=== PATIENT | male | born 1960 | race Caucasian/White ===

== ENCOUNTER 2019-04-27 10:34 | Emergency (ER) | payer OTHER, SELFPAY ==
[2019-04-27 10:41] VITALS: BP 132/87; PULSE 69; RESP 18; TEMP 36.4; O2SAT 98
--- NOTE | 2019-04-27 10:48 | ED.GENADULT ---
HPI - General Adult General Chief complaint: Upper Respiratory Infection Stated complaint: congestion/cough Time Seen by Provider: 04/27/19 10:49 Source: patient and RN notes reviewed Mode of arrival: ambulatory Limitations: no limitations History of Present Illness HPI narrative: This is a 58 years old male presented office for evaluation of head cold for 1 to 2-week. Symptom has gotten worse for the last week with headache, drainage, sore throat, head fullness, and cough. Cough is very bothersome at nighttime. His was sick first which has passed onto him. He did receive influenza vaccine for this season. Related Data Home Medications Medication Instructions Recorded Confirmed montelukast 10 mg tablet 10 mg PO DAILY 01/05/19 04/27/19 Allergies Allergy/AdvReac Type Severity Reaction Status Date / Time No Known Allergies Allergy Verified 04/27/19 10:44 Review of Systems Review of Systems: Narrative: CONSTITUTIONAL: Denies fever ENT: Reports rhinorrhea, congestion, sore throat, otalgia. CARDIOVASCULAR: Denies chest pain, palpitation, edema. RESPIRATORY: Denies dyspnea, wheezing GASTROINTESTINAL: Denies abdominal pain, nausea, vomiting, diarrhea. SKIN: Denies rash MUSCULOSKELETAL: Denies acute back pain NEUROLOGIC: Denies lightheaded PMFSH Past Medical History Medical History Allergic rhinitis, unspecified Arthritis Asthma Avascular necrosis of bone of left hip Borderline hyperlipidemia Elevated glucose Enlarged prostate with lower urinary tract symptoms (LUTS) Essential (primary) hypertension Fatty liver disease, nonalcoholic (09/22/18) History of inguinal hernia History of kidney stones Hypertension Other obstructive and reflux uropathy (09/22/18) Polyosteoarthritis, unspecified (09/22/18) Primary osteoarthritis of left hip Surgical History Surgical History History of inguinal hernia repair History of nasal septoplasty History of total left hip arthroplasty (~03/09/18) Presence of left artificial hip joint (03/09/18) Family History Family History Father Hypertension Family history of diabetes mellitus in first degree relative Family history of lung cancer, Onset Age: 74 Diabetes mellitus Family history of malignant neoplasm Family history of allergic disorder Mother Hypertension Family history of allergic disorder Sibling Patient's brother is in good health Other Asthma Social History Social History Smoking status: Never smoker Alcohol intake: current Gender identity (if verbalized by the patient): Male Comments At time of signature, I agree with nursing past medical, surgical, social and family history. There is no relevant family history pertinent to the presenting complaint. Exam Narrative: Exam Narrative: GENERAL: This is a well-nourished, well-developed patient, in no apparent distress. EYES: Sclera clear/white. Vision is grossly intact. EARS: External ears normal, auditory canals clear and without drainage, TMs normal without perforation. Hearing grossly intact. NOSE: External nose normal with no obvious nasal discharge, nares without redness, no rhinorrhea. THROAT: Mucous membranes moist, posterior pharynx erythema and edematous NECK: Neck supple, non-tender without lymphadenopathy, masses or thyromegaly. CARDIOVASCULAR: Regular rate and rhythm without murmurs, gallops, or rubs. RESPIRATORY: Clear to auscultation. Breath sounds equal bilaterally. No wheezes, rales, or rhonchi. GASTROINTESTINAL: Abdomen soft, non-tender, nondistended. Bowel sounds are active.No guarding. SKIN: warm, intact with no suspicious lesions or rash, good texture and turgor. NEURO: awake, alert, and oriented to person, place and time. There were no obvious focal kristyn
== END 2019-04-27 11:00 | disposition home or self-care (01) ==
PROVIDERS: Emergency Provider Nurse Practitioner; PCP Internal Medicine
DX: J06.9 Acute upper respiratory infection, unspecified (principal); M19.90 Unspecified osteoarthritis, unspecified site; J45.909 Unspecified asthma, uncomplicated; I10 Essential (primary) hypertension; Z96.642 Presence of left artificial hip joint; N40.1 Benign prostatic hyperplasia with lower urinary tract symptoms
CPT/HCPCS: 99213; G0463

== ENCOUNTER 2020-02-25 10:05 | Emergency (ER) | payer OTHER, SELFPAY ==
--- NOTE | ~2020-02-25 | XR_ITS ---
EXAMINATION: XR foot RT min 3V DATE: 02/25/2020 10:41 INDICATION: Pain and swelling at the calcaneus post fall TECHNIQUE: Dorsoplantar, two oblique and lateral views of the right foot were obtained. COMPARISON: None. FINDINGS: Comminuted joint depression type fracture of the calcaneus with flattening of Boehler's angle. There are fracture lines involving the articular surfaces of both the subtalar joint and calcaneocuboid luis antonio nt, the former with 2 mm step-off in the latter without significant fracture gap or incongruity. No o ther fractures identified. Otherwise normal alignment and joint spaces throughout the right foot. Sof t tissue swelling about the hindfoot. No ankle joint effusion. IMPRESSION: 1. Comminuted joint depression type fracture of the calcaneus involving both the subtalar and calcane ocuboid joints. Reviewed, dictated and finalized at location A. 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 Comminuted joint depression type fracture of the calcaneus involving both th e subtalar and calcaneocuboid joints.
[2020-02-25 10:24] VITALS: BP 156/102; PULSE 78; RESP 18; TEMP 36.3; O2SAT 99
--- NOTE | 2020-02-25 11:50 | ED.FALL ---
HPI - Fall General Chief Complaint: Fall Stated Complaint: R FOOT PAIN/FELL OFF 8 FT ROOF Time Seen by Provider: 02/25/20 10:35 Source: patient and family () Mode of arrival: other (Ambulatory with crutches) Limitations: no limitations History of Present Illness HPI Narrative: Patient is a 59-year-old male who presents after a fall off of a roof this a.m. Patient reports taking Ramone lights off of a gently sloping roof when he slid falling to a concrete patio on right heel. He denies back pain, neck pain, hitting head or LOC. He reports pain in her right foot and heel. He denies all other injuries. and patient refuse all x-rays except that of foot and ankle. He reports taking 800 mg of ibuprofen prior to arrival. Ambulatory with crutches, alert and oriented x4, denies significant medical history. MD complaint: fall Related Data Allergies Allergy/AdvReac Type Severity Reaction Status Date / Time No Known Allergies Allergy Verified 02/25/20 10:27 Review of Systems Review of Systems: Narrative: CONSTITUTIONAL: Denies fever, chills, or sweats. EYES: Denies visual changes, redness, or discharge. ENT: Denies rhinorrhea, congestion, sore throat, or otalgia. CARDIOVASCULAR: Denies chest pain, palpitations, or edema. RESPIRATORY: Denies cough or dyspnea. GASTROINTESTINAL: Denies abdominal pain, nausea, vomiting, or diarrhea. GENITOURINARY: Denies dysuria or hematuria. SKIN: Denies rash or itching. MUSCULOSKELETAL: Denies back pain or neck pain, reports right foot pain NEUROLOGIC: Denies headache, numbness, dizziness, or weakness. PSYCHIATRIC: Denies anxiety or depression. [facility] Past Medical History Medical History Allergic rhinitis, unspecified Arthritis Asthma Avascular necrosis of bone of left hip Borderline hyperlipidemia Elevated glucose Enlarged prostate with lower urinary tract symptoms (LUTS) Essential (primary) hypertension Fatty liver disease, nonalcoholic (09/22/18) History of inguinal hernia History of kidney stones Hypertension Other obstructive and reflux uropathy (09/22/18) Polyosteoarthritis, unspecified (09/22/18) Primary osteoarthritis of left hip Surgical History Surgical History History of inguinal hernia repair History of nasal septoplasty History of total left hip arthroplasty (~03/09/18) Presence of left artificial hip joint (03/09/18) Family History Family History Father Hypertension Family history of diabetes mellitus in first degree relative Family history of lung cancer, Onset Age: 74 Diabetes mellitus Family history of malignant neoplasm Family history of allergic disorder Mother Hypertension Family history of allergic disorder Sibling Patient's brother is in good health Other Asthma Social History Social History Smoking status: Never smoker Alcohol intake: current Gender identity (if verbalized by the patient): Male Exam Narrative: Exam Narrative: GENERAL: Well-appearing, well-nourished, and in no acute distress. HEAD: Normocephalic, atraumatic. EYES: EOMI. No redness or drainage. ENT: Mucous membranes pink and moist. NECK: AROM. Supple. No lymphadenopathy, no pain with palpation. CHEST: No respiratory distress. Clear to auscultation. HEART: Regular rate and rhythm. GI: Soft, nontender without rebound, or guarding. No distention. MUSCULOSKELETAL: No bony tenderness. EXTREMITIES: Edema to right ankle, ecchymosis right calcaneus, tenderness with palpation SKIN: Warm, dry, no rash. NEURO: No focal deficits. Alert and oriented x3. Gait steady. PSYCH: Normal affect. No signs of depression or anxiety. Course Course Emergency Course: Discussed patient with Dr. Andujar who feels patient needs transfer [facility]. Carole
[2020-02-25 11:52] VITALS: BP 143/86; PULSE 75; RESP 18; O2SAT 96
== END 2020-02-25 12:36 | disposition short-term general hospital (02) ==
PROVIDERS: Emergency Provider Nurse Practitioner; PCP Internal Medicine
DX: S92.001A Unspecified fracture of right calcaneus, initial encounter for closed fracture (principal); J45.909 Unspecified asthma, uncomplicated; I10 Essential (primary) hypertension; M16.12 Unilateral primary osteoarthritis, left hip; Z87.442 Personal history of urinary calculi; N40.1 Benign prostatic hyperplasia with lower urinary tract symptoms; Z96.642 Presence of left artificial hip joint; W13.2XXA Fall from, out of or through roof, initial encounter
CPT/HCPCS: 29515; 73630; 99284

== ENCOUNTER 2020-06-20 07:30 | Outpatient (CLI) | payer OTHER, SELFPAY ==
[2020-06-20 08:09] LABS: Alanine Aminotransferase 49 U/L (4-50); Albumin Level 4.2 g/dL (3.5-5.1); Alkaline Phosphatase 54 U/L (38-126); Anion Gap 5 mmol/L (8-16); Aspartate Amino Transferase 43 U/L (17-59); Bilirubin,Total 0.6 mg/dL (0.2-1.3); Blood Urea Nitrogen 14 mg/dL (9-20); Calcium 8.4 mg/dL (8.4-10.2); Carbon Dioxide 31 mmol/L (22-30); Chloride 101 mmol/L (98-107); Cholesterol 143 mg/dL (0-200); Estimated Glomerular Filt Rate > 60; Glucose 123 mg/dL (75-110); HDL Direct 36 mg/dL; Sodium 137 mmol/L (137-145); Triglycerides 107 mg/dL (<150)
[2020-06-20 08:20] LABS: LDL Cholesterol Direct 87 mg/dL
[2020-06-20 10:05] LABS: Prostate Specific Antigen 6.1 ng/mL (< OR = 4.0)
== END 2020-06-20 07:31 | disposition home or self-care (01) ==
PROVIDERS: PCP Internal Medicine; Visit Provider Nurse Practitioner
DX: Z12.5 Encounter for screening for malignant neoplasm of prostate (principal); I10 Essential (primary) hypertension; R74.8 Abnormal levels of other serum enzymes; Z13.220 Encounter for screening for lipoid disorders
CPT/HCPCS: 36415; 80053; 80061; 84153; G0103

== ENCOUNTER 2020-06-21 08:47 | Outpatient (CLI) | payer OTHER, SELFPAY ==
--- NOTE | ~2020-06-21 | XR_ITS ---
XR abdomen/kub 1V 06/21/2020 09:21 Indication: Gross hematuria Procedure: KUB Comparison: 04/01/2013 Findings: There is a calcification in the right pelvis which is new. Bladder or distal ureteral stone not excluded. There is a left total hip arthroplasty. No acute osseous abnormality. Mild levocurvatu re of the lumbar spine. Impression: 1: Focal calcification in the right pelvis is new, possibly distal ureteral stone or bladder stone. Reviewed, dictated and finalized at location B. Impression: 1: Focal calcification in the right pelvis is new, possibly distal ureteral sto ne or bladder stone.
--- NOTE | ~2020-06-21 | CT_ITS ---
EXAMINATION: CT abdomen pelvis wo/w con DATE: 06/21/2020 09:44 INDICATION: Gross hematuria. TECHNIQUE: Computed tomography (CT) of the abdomen and pelvis was performed without and with intraven ous contrast using a total of 130 mL Omnipaque-350 intravenous contrast with a double-bolus technique for simultaneous opacification of the renal parenchyma and renal collecting system. Automated exposu re control and iterative reconstruction technique were employed. The dose-length product was 2182.98 mGy-cm. COMPARISON: CT abdomen and pelvis 03/15/2013 FINDINGS: The visualized portions of the lung bases demonstrate mild atelectasis. No pleural effusion. The hear t size is normal. No pericardial effusion. There is a small sliding hiatal hernia. There is diffuse h epatic steatosis. There are cysts in the liver measuring up to 9 mm. The spleen, pancreas, and adrena l glands are normal. There are cysts in the kidneys measuring up to 15 mm on the left. There is a 5 m m stone in the bladder. There is diffuse bladder wall thickening. The bladder is distended. The prost ate is moderately enlarged. The ureters are well opacified and are normal. There is a left inguinal h ernia containing fat and nonobstructed sigmoid colon. There are no dilated loops of bowel. The append ix is normal. There are no pathologically enlarged lymph nodes. There is no free intraperitoneal flu id. There is a total left hip arthroplasty. There are chronic bilateral L5 pars defects. There is sev ere degenerative disc disease at L5-S1. IMPRESSION: 1. 5 mm stone in the bladder. 2. Chronic diffuse mild bladder wall thickening, likely secondary to chronic outlet obstruction from the moderately enlarged prostate. 3. Left inguinal hernia containing nonobstructed sigmoid colon. Reviewed, dictated and finalized at location A. IMPRESSION: 1. 5 mm stone in the bladder. 2. Chronic diffuse mild bladder wall thickening, likely secondary to chronic ou tlet obstruction from the moderately enlarged prostate. 3. Left inguinal hernia containing nonobstructed sigmoid colon.
== END 2020-06-21 08:48 | disposition home or self-care (01) ==
PROVIDERS: PCP Internal Medicine; Visit Provider Nurse Practitioner Adult Health
DX: R31.0 Gross hematuria (principal); K40.90 Unilateral inguinal hernia, without obstruction or gangrene, not specified as recurrent; N21.0 Calculus in bladder
CPT/HCPCS: 74018; 74178; Q9967

== ENCOUNTER 2020-08-09 13:25 | Emergency (ER) | payer OTHER, SELFPAY ==
[2020-08-09 13:35] VITALS: BP 112/97; PULSE 82; RESP 18; TEMP 36.6; O2SAT 97
--- NOTE | 2020-08-09 14:02 | ED.GENADULT ---
HPI - General Adult General Chief complaint: Skin/Abscess/Foreign Body Stated complaint: rash Time Seen by Provider: 08/09/20 13:30 Source: patient Mode of arrival: ambulatory Limitations: no limitations History of Present Illness HPI narrative: 60 y/o male. PMH includes: Seasonal allergies, HTN. Presents to [facility] today with acute complaints of upper buttock excoriation and rash for past 4 days. 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 Client notes to have been scratching area because it was itching, and now area has become more inflamed and irritated. No fevers, myalgias. No additional areas of integumentary involvement. Non-diabetic. He is without additional acute complaints of illness upon exam. Related Data Home Medications Medication Instructions Recorded Confirmed finasteride 5 mg PO DAILY 08/09/20 08/09/20 Allergies Allergy/AdvReac Type Severity Reaction Status Date / Time No Known Allergies Allergy Verified 08/09/20 13:41 Review of Systems Review of Systems: Narrative: CONSTITUTIONAL: Denies fever, chills, sweats. EYES: Denies visual changes, redness, discharge. ENT: Denies rhinorrhea, congestion, sore throat, otalgia. CARDIOVASCULAR: Denies chest pain, palpitations, edema. RESPIRATORY: Denies dyspnea, wheezing, cough GASTROINTESTINAL: Denies abdominal pain, nausea, vomiting, diarrhea. GENITOURINARY: Denies dysuria, hematuria, abnormal discharge SKIN: Positive rash & itching. MUSCULOSKELETAL: Denies acute back pain, joint pain, or myalgia. NEUROLOGIC: Denies numbness, or focal weakness. PSYCHIATRIC: Denies anxiety or depression. All systems reviewed & are unremarkable except as noted in HPI and below PMFSH Past Medical History Medical History Allergic rhinitis, unspecified Arthritis Asthma Avascular necrosis of bone of left hip Borderline hyperlipidemia Elevated glucose Enlarged prostate with lower urinary tract symptoms (LUTS) Essential (primary) hypertension Fatty liver disease, nonalcoholic (09/22/18) History of inguinal hernia History of kidney stones Hypertension Other obstructive and reflux uropathy (09/22/18) Polyosteoarthritis, unspecified (09/22/18) Primary osteoarthritis of left hip Surgical History Surgical History History of inguinal hernia repair History of nasal septoplasty History of total left hip arthroplasty (~03/09/18) Presence of left artificial hip joint (03/09/18) Family History Family History Father Hypertension Family history of diabetes mellitus in first degree relative Family history of lung cancer, Onset Age: 74 Diabetes mellitus Family history of malignant neoplasm Family history of allergic disorder Mother Hypertension Family history of allergic disorder Sibling Patient's brother is in good health Other Asthma Social History Social History Smoking status: Never smoker Alcohol intake: current Gender identity (if verbalized by the patient): Male Exam Narrative: Exam Narrative: GENERAL: This is a well-nourished, well-developed patient, in no apparent distress. HEAD: normocephalic, atraumatic. EYES: Sclera clear/white. EARS: External ears normal. NOSE: External nose normal. THROAT: Mucous membranes moist. NECK: Neck supple, non-tender without lymphadenopathy, masses or thyromegaly. CARDIOVASCULAR: Regular rate and rhythm without murmurs, gallops, or rubs. RESPIRATORY: Clear to auscultation. Breath sounds equal bilaterally. GASTROINTESTINAL: Abdomen soft, non-tender, nondistended. SKIN: with erythema and soft tissue excoriation along both sides of the upper aspect of gluteal cleft. There are superficial scratches, no deep tissue disruption.
== END 2020-08-09 14:25 | disposition home or self-care (01) ==
PROVIDERS: Emergency Provider Nurse Practitioner Adult Health; PCP Internal Medicine
DX: R21 Rash and other nonspecific skin eruption (principal); S30.810A Abrasion of lower back and pelvis, initial encounter; X58.XXXA Exposure to other specified factors, initial encounter; M19.90 Unspecified osteoarthritis, unspecified site; J45.909 Unspecified asthma, uncomplicated; I10 Essential (primary) hypertension; K76.0 Fatty (change of) liver, not elsewhere classified; M87.9 Osteonecrosis, unspecified
CPT/HCPCS: 99213; G0463

== ENCOUNTER 2020-10-31 09:34 | Outpatient (CLI) | payer OTHER, SELFPAY ==
[2020-10-31 10:38] LABS: Alanine Aminotransferase 91 U/L (4-50); Albumin Level 4.5 g/dL (3.5-5.1); Alkaline Phosphatase 44 U/L (38-126); Anion Gap 7 mmol/L (8-16); Aspartate Amino Transferase 67 U/L (17-59); Bilirubin,Total 0.7 mg/dL (0.2-1.3); Blood Urea Nitrogen 13 mg/dL (9-20); Calcium 8.9 mg/dL (8.4-10.2); Carbon Dioxide 28 mmol/L (22-30); Chloride 101 mmol/L (98-107); Cholesterol 150 mg/dL (0-200); Estimated Glomerular Filt Rate > 60; Glucose 119 mg/dL (65-110); HDL Direct 33 mg/dL; Potassium 4.1 mmol/L (3.4-5.0); Sodium 136 mmol/L (137-145); Triglycerides 154 mg/dL (<150)
[2020-10-31 10:49] LABS: LDL Cholesterol Direct 79 mg/dL
[2020-10-31 11:09] LABS: Prostate Specific Antigen 3.3 ng/mL (< OR = 4.0)
== END 2020-10-31 09:35 | disposition home or self-care (01) ==
LOC: ANHLAB 09:37
PROVIDERS: PCP Internal Medicine; Visit Provider Internal Medicine
DX: Z12.5 Encounter for screening for malignant neoplasm of prostate (principal); Z13.220 Encounter for screening for lipoid disorders; R79.89 Other specified abnormal findings of blood chemistry; I10 Essential (primary) hypertension
CPT/HCPCS: 36415; 80053; 80061; 84153; G0103

== ENCOUNTER 2023-02-04 07:54 | Outpatient (CLI) | payer OTHER, SELFPAY ==
[2023-02-04 08:40] LABS: Hematocrit 48.8 % (42.0-52.0); Hemoglobin 16.6 g/dL (14.0-18.0); Mean Corpuscular Hemoglobin 31.9 pg (26-34); Mean Corpuscular Volume 93.8 fl (80-100); Mean Platelet Volume 9.8 fl (7.4-10.4); Platelet Count Result 193 k/mm3 (150-375); Red Cell Distribution Width 12.5 % (11.5-14.5); White Blood Count 6.1 K/mm3 (4.5-10.0)
[2023-02-04 08:47] LABS: Alanine Aminotransferase 83 U/L (6-50); Albumin Level 4.4 g/dL (3.5-5.1); Alkaline Phosphatase 48 U/L (38-126); Anion Gap 5 mmol/L (8-16); Aspartate Amino Transferase 57 U/L (17-59); Bilirubin,Total 0.6 mg/dL (0.2-1.3); Blood Urea Nitrogen 17 mg/dL (9-20); Calcium 8.8 mg/dL (8.4-10.2); Carbon Dioxide 31 mmol/L (22-30); Chloride 100 mmol/L (98-107); Cholesterol 172 mg/dL (0-200); Estimated Glomerular Filt Rate > 60; Glucose 123 mg/dL (65-110); HDL Direct 30 mg/dL; Potassium 4.1 mmol/L (3.4-5.0); Sodium 136 mmol/L (137-145); Triglycerides 310 mg/dL (<150)
[2023-02-04 08:56] LABS: LDL Cholesterol Direct 93 mg/dL
[2023-02-04 08:57] LABS: Hemoglobin A1C 6.1 % (<5.7)
[2023-02-04 09:15] LABS: Prostate Specific Antigen 2.5 ng/mL (< OR = 4.0)
== END 2023-02-04 07:55 | disposition home or self-care (01) ==
LOC: ANHLAB 07:56
PROVIDERS: PCP Family Medicine; Visit Provider Family Medicine
DX: J45.909 Unspecified asthma, uncomplicated (principal); Z68.30 Body mass index [BMI] 30.0-30.9, adult; I10 Essential (primary) hypertension; R74.8 Abnormal levels of other serum enzymes; R73.01 Impaired fasting glucose; Z00.00 Encounter for general adult medical examination without abnormal findings; Z13.220 Encounter for screening for lipoid disorders; Z12.5 Encounter for screening for malignant neoplasm of prostate
CPT/HCPCS: 36415; 80053; 80061; 83036; 84153; 85027; G0103

== ENCOUNTER 2023-07-08 13:22 | Emergency (ER) | payer OTHER, SELFPAY ==
--- NOTE | 2023-07-08 13:25 | ED.GENADULT ---
HPI - General Adult General Chief complaint: Skin/Abscess/Foreign Body Stated complaint: skin irritation on rt forearm Time Seen by Provider: 07/08/23 13:38 Source: patient, RN notes reviewed and old records reviewed Mode of arrival: ambulatory Limitations: no limitations History of Present Illness HPI narrative: 62-year-old male presents to the [facility] with a wound to the mid right forearm. States about a week ago he removed a splinter from the area. Has been applying Neosporin keeping it covered. Related Data Home Medications Medication Instructions Recorded Confirmed finasteride 5 mg tablet 5 mg PO DAILY 08/09/20 07/08/23 Allergies Allergy/AdvReac Type Severity Reaction Status Date / Time No Known Allergies Allergy Verified 07/08/23 13:39 Review of Systems Review of Systems: All systems reviewed & are unremarkable except as noted in HPI and below Constitutional: Constitutional: Reports no additional constitutional complaints Eyes: Eyes: Reports no additional eye complaints ENT: Reports system reviewed and no additional complaints, except as documented Cardiovascular: Cardiovascular: Reports no additional cardiovascular complaints, Denies chest pain and Denies dyspnea Respiratory: Respiratory: Reports no additional respiratory complaints, Denies chest congestion, Denies cough and Denies dyspnea Gastrointestinal: Gastrointestinal: Reports no additional gastrointestinal complaints, Denies abdominal pain, Denies nausea and Denies vomiting Musculoskeletal: Musculoskeletal: Reports no additional musculoskeletal complaints Integumentary/Breasts: Skin/Breast: Reports as per HPI and Reports sores Neurologic: Reports system reviewed and no additional complaints, except as documented Psychiatric: Psychiatric: Reports no additional psychiatric complaints Allergic/Immunologic: Allergic/Immunologic: Reports no additional allergic/immunologic complaints [facility] Past Medical History Medical History Allergic rhinitis, unspecified Arthritis Asthma Avascular necrosis of bone of left hip Borderline hyperlipidemia Elevated glucose Enlarged prostate with lower urinary tract symptoms (LUTS) Essential (primary) hypertension Fatty liver disease, nonalcoholic (09/22/18) History of inguinal hernia History of kidney stones Hypertension Other obstructive and reflux uropathy (09/22/18) Polyosteoarthritis, unspecified (09/22/18) Primary osteoarthritis of left hip Surgical History Surgical History History of inguinal hernia repair History of nasal septoplasty History of total left hip arthroplasty (~03/09/18) Presence of left artificial hip joint (03/09/18) Family History Family History Father Hypertension Family history of diabetes mellitus in first degree relative Family history of lung cancer, Onset Age: 74 Diabetes mellitus Family history of malignant neoplasm Family history of allergic disorder Mother Hypertension Family history of allergic disorder Sibling Patient's brother is in good health Other Asthma Social History Social History Smoking status: Never smoker Second hand tobacco smoke exposure: No Alcohol intake: current Alcohol use details: socially Substance use: never Substance use type: does not use Lack of Transportation: No Lack of Food: Never True Current Housing: I Have Housing Concerned About Future Housing: No Difficulty Paying Gas/Electric Bills: No Difficulty Paying for Meds: No Currently Unemployed: No Education: Trade/Vocational Certificate Difficulty w/ Childcare or Family Care: No Gender identity (if verbalized by the patient): Male Comments At the time of my signature, I reviewed and agree with the nursing past medical, centeno
[2023-07-08 13:39] VITALS: BP 131/88; PULSE 72; RESP 18; TEMP 36.4; O2SAT 98
[2023-07-08 13:40] VITALS: BP 131/88; PULSE 72; RESP 18; TEMP 36.4; O2SAT 98
== END 2023-07-08 13:56 | disposition home or self-care (01) ==
PROVIDERS: Emergency Provider Nurse Practitioner; PCP Family Medicine
DX: S50.811A Abrasion of right forearm, initial encounter (principal); X58.XXXA Exposure to other specified factors, initial encounter; M19.90 Unspecified osteoarthritis, unspecified site; J45.909 Unspecified asthma, uncomplicated; M87.9 Osteonecrosis, unspecified; N40.1 Benign prostatic hyperplasia with lower urinary tract symptoms; I10 Essential (primary) hypertension; K76.0 Fatty (change of) liver, not elsewhere classified; M16.12 Unilateral primary osteoarthritis, left hip; Z96.642 Presence of left artificial hip joint
CPT/HCPCS: 99211; G0463

== ENCOUNTER 2023-08-19 06:30 | Outpatient (CLI) | payer OTHER, SELFPAY ==
[2023-08-19 07:42] LABS: Hematocrit 45.9 % (42.0-52.0); Hemoglobin 15.7 g/dL (14.0-18.0); Mean Corpuscular HGB Conc 34.2 g/dl (32-36); Mean Corpuscular Hemoglobin 32.2 pg (26-34); Mean Corpuscular Volume 94.1 fl (80-100); Mean Platelet Volume 9.4 fl (7.4-10.4); Platelet Count Result 189 k/mm3 (150-375); Red Blood Count 4.88 M/mm3 (4.6-6.20); Red Cell Distribution Width 13.1 % (11.5-14.5); White Blood Count 4.9 K/mm3 (4.5-10.0)
[2023-08-19 07:53] LABS: Alanine Aminotransferase 78 U/L (6-50); Albumin Level 4.3 g/dL (3.5-5.1); Alkaline Phosphatase 48 U/L (38-126); Anion Gap 7 mmol/L (4-12); Aspartate Amino Transferase 59 U/L (17-59); Bilirubin,Total 0.6 mg/dL (0.2-1.3); Blood Urea Nitrogen 13 mg/dL (9-20); Calcium 8.4 mg/dL (8.4-10.2); Carbon Dioxide 28 mmol/L (22-30); Chloride 104 mmol/L (98-107); Cholesterol 140 mg/dL (0-200); Estimated Glomerular Filt Rate > 60; Glucose 129 mg/dL (65-110); HDL Direct 31 mg/dL; Potassium 3.8 mmol/L (3.4-5.0); Sodium 139 mmol/L (137-145); Triglycerides 228 mg/dL (<150)
[2023-08-19 08:04] LABS: LDL Cholesterol Direct 87 mg/dL
[2023-08-19 08:33] LABS: Hepatitis B Surface Antigen Negative (Negative)
[2023-08-19 08:40] LABS: HAV RESULT Negative (Negative); Hepatitis B Core IgM Result Negative (Negative)
[2023-08-19 08:47] LABS: Hemoglobin A1C 5.6 % (<5.7)
[2023-08-19 08:50] LABS: Hepatitis C Virus Antibody Negative (Negative)
== END 2023-08-19 06:31 | disposition home or self-care (01) ==
LOC: ANHLAB 06:32
PROVIDERS: PCP Family Medicine; Visit Provider Family Medicine
DX: E78.1 Pure hyperglyceridemia (principal); I10 Essential (primary) hypertension; J45.909 Unspecified asthma, uncomplicated; R73.03 Prediabetes; R74.8 Abnormal levels of other serum enzymes; Z00.00 Encounter for general adult medical examination without abnormal findings
CPT/HCPCS: 36415; 80053; 80061; 80074; 83036; 85027

== ENCOUNTER 2023-09-04 14:21 | Outpatient (CLI) | payer OTHER, SELFPAY | END 2023-09-04 14:22 | disposition home or self-care (01) | LOC: ANHAUDIO 14:21 | PROVIDERS: PCP Family Medicine; Visit Provider Otolaryngology | DX: H90.3 Sensorineural hearing loss, bilateral (principal); J31.0 Chronic rhinitis; H61.22 Impacted cerumen, left ear | CPT/HCPCS: 92557; 92567 ==

== ENCOUNTER 2024-04-05 09:13 | Outpatient (CLI) | payer OTHER, SELFPAY ==
--- OUTSIDE RECORDS SUMMARY | 2024-04-05 10:11 | XMS_ITS | Referral Summary ---
Author Organization [facility] Address [address] 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,non-owned Affiliates and Associated Physician Practices is amultiple site organization consisting of ambulatory clinics and hospital sitesin [place], [place], [place] and [place]. This disclosure is being madepursuant to the Care Everywhere program and may not contain all information available regarding this patient. Last updated 17.[facility] Allergies No known active allergies Medications * Be aware that medications may not be up to date on this document. Alwaysverify current medications with the patient. Medication Sig Dispensed Refills Start Date End Date Status lisinopril (PRINIVIL; ZESTRIL) 10 MG tablet Take 10 mg by mouth once daily Active montelukast (SINGULAIR) 10 MG tablet Take 10 mg by mouth at bedtime Active ketorolac (TORADOL) 10 MG tablet Take 1 tablet by mouth every 6 hours as needed for Pain 20 tablet 02/25/2020 Active baclofen (LIORESAL) 10 MG tablet Take 1 tablet by mouth 3 times daily as needed for Muscle Spasms May cause drowsiness. 30 tablet 02/25/2020 Active VENTOLIN HFA 108 (90 Base) MCG/ACT inhaler INHALE 2 PUFFS PO Q 6 H PRF SOB OR WHEEZING 11/22/2019 Active BREO ELLIPTA 100-25 MCG/INH inhaler INL 1 PUFF PO AT THE SAME TIME Q DAY. RM AFTER U 12/28/2019 Active lisinopril-hydroCHLO ROthiazide (PRINZIDE; ZESTORETIC) 20-25 MG tablet 02/13/2020 Active mometasone (NASONEX) 50 MCG/ACT nasal spray USE 2 SPRAYS IEN D PRF ALLERGY SYMPTOMS 09/01/2019 Active Active Problems Problem Noted Date Diagnosed Date Closed nondisplaced fracture of right calcaneus with routine healing 04/03/2020 Social History Tobacco Use Types Packs/Day Years Used Date Smoking Tobacco: Never Smokeless Tobacco: Never Tobacco Cessation:Counseling Given: No Alcohol Use Standard Drinks/Week Comments Yes 0 (1 standard drink = 0.6 oz pur e alcohol) occasional Sex and Gender Information Value Date Recorded Sex Assigned at Not on file Gender Identity Not on file Sexual Orientation Not on file Last Filed Vital Signs Vital Sign Reading Time Taken Comments Blood Pressure 193/121 02/25/2020 6:30 PM MEAT CARVER Pulse 70 02/25/2020 5:30 PM MEAT CARVER Temperature 36.9 C (98.4 F) 02/25/2020 1:48 PM MEAT CARVER Respiratory Rate 16 02/25/2020 5:30 PM MEAT CARVER Oxygen Saturation 100% 02/25/2020 6:54 PM MEAT CARVER Inhaled Oxygen Concentration 21% 02/25/2020 5 :30 PM MEAT CARVER Weight 99.8 kg (220 lb) 05/30/2020 2:31 PM CDT Height 177.8 cm (5' 10 ) 05/30/2020 2:31 PM CDT Body Mass Index 31.57 05/30/2020 2:31 PM CDT Plan of Treatment Not on file Goals Goal Patient Goal Type Associated Problems Recent Progress Patient-Stated? Author PAIN General Improving(02/24 2:38 PM MEAT CARVER) Letha Larios, RN Note: Expected end date: ongoing Patient's pain/discomfort is manageable. Interventions: Milo Ziegler Personal/Family Self 1960 [id number] [place] [address]
--- OUTSIDE RECORDS SUMMARY | 2024-04-05 10:11 | XMS_ITS | Clinical Summary ---
Author Organization [facility] Address [address] [place] [address] Care Team Providers Care Carpet Journeyman Name Role Phone Unavailable Primary Care Provider Unavailabl e Source Comments [facility],non-owned Affiliates and Associated Physician Practices is amultiple site organization consisting of ambulatory clinics and hospital sitesin [place], [place], [place]. This disclosure is being madepursuant to the Care Everywhere program and may not contain all information available regarding this patient. Last updated 17.[facility] Allergies No known active allergies Medications * [...] Comments Blood Pressure 193/121 02/25/2020 6:30 PM CADD DRAFTER Pulse 70 02/25/2020 5:30 PM CADD DRAFTER Temperature 36.9 C (98.4 F) 02/25/2020 1:48 PM CADD DRAFTER Respiratory Rate 16 02/25/2020 5:30 PM CADD DRAFTER Oxygen Saturation 100% 02/25/2020 6:54 PM CADD DRAFTER Inhaled Oxygen Concentration 21% 02/25/2020 5 :30 PM CADD DRAFTER Weight 99.8 kg (220 lb) 05/30/2020 2:31 PM CDT Height 177.8 cm (5' 10 ) 05/30/2020 2:31 PM CDT Body Mass Index 31.57 05/30/2020 2:31 PM CDT Plan of Treatment Health Maintenance Due Date Last Done Comments COLOGUARD (AGES 45-75) - COL ON CA SCREENING 1962 COLON MONITORING 1962 COLONOSCOPY - COLON CA SCREENING 1962 CT COLONOGRAPHY - COLON CA SCREENING 1962 Colorectal Cancer Screening 1962 FIT - COLON CA SCREENING 1962 FLEX SIG - COLON CA SCREENING 1962 LIPID TESTING 1962 HIV SCREENING 1977 HEPATITIS C SCREENING 07/28/1980 DTAP/TDAP/TD VACCINES (1 - Tdap) 1981 PNEUMOCOCCAL VACCINE 50+ (1 of 1 - PCV) 2012 ZOSTER VACCINE (1 of 2) 2012 SCREENING FOR DIABETES 02/29/2020 COVID-19 VACCINE (2023-2 5 season) 2023 INFLUENZA VACCINE (#1) 2023 DEPRESSION SCREENING 02/24/2024 Respiratory Syncytial Virus (RSV) Vaccine Pt: or over 60 yrs (1 - 1-dose 75+ series) 2037 HEPATITIS B VACCINE Aged Out No longe r eligible based on patient's age to complete this topic HIB VACCINE Aged Out No longer eligi ble based on patient's age to complete this topic HPV VACCINE Aged Out No longer eligi ble based on patient's age to complete this topic MENINGOCOCCAL (Group B) VACCINE Aged Out No longer eligible based on patient's age to complete this topic MENINGOCOCCAL VACCINE Aged Out No herminia ernesto eligible based on patient's age to complete this topic PNEUMOCOCCAL VACCINE Aged Out No long er eligible based on patient's age to complete this topic Goals Goal Patient Goal Type Associated Problems Recent Progress Patient-Stated? Author PAIN General Improving(02/24 2:38 PM CADD DRAFTER) Letha Larios, RN Note: Expected end date: ongoing Patient's pain/discomfort is manageable. Interventions:
--- OUTSIDE RECORDS SUMMARY | 2024-04-05 10:11 | XMS_ITS | Patient Health Summary ---
Author Organization [facility] Address [address] [address] Care Team Providers Care Type Bar And Segment Assembler Name Role Phone Unavailable Primary Care Provider Unavailabl e Note from [facility],non-owned Affiliates and Associated Physician Practices is amultiple site organization consisting of ambulatory clinics and hospital sitesin [place], [place], [place] and [place]. This disclosure is being madepursuant to the Care Everywhere program and may not contain all information available regarding this patient. Last updated 17.[facility] Allergies No known active allergies Medications * Be aware that medications may not be up to date on this document. Alwaysverify current medications with the patient. * lisinopril (PRINIVIL; ZESTRIL) 10 MG tablet Take 10 mg by mouth once daily * montelukast (SINGULAIR) 10 MG tablet Take 10 mg by mouth at bedtime * ketorolac (TORADOL) 10 MG tablet(Started 02/25/2020) Take 1 tablet by mouth every 6 hours as needed for Pain * baclofen (LIORESAL) 10 MG tablet(Started 02/25/2020) Take 1 tablet by mouth 3 times daily as needed for Muscle Spasms May cause drowsiness. * VENTOLIN HFA 108 (90 Base) MCG/ACT inhaler(Started 11/22/2019) INHALE 2 PUFFS PO Q 6 H PRF SOB OR WHEEZING * BREO ELLIPTA 100-25 MCG/INH inhaler(Started 12/28/2019) INL 1 PUFF PO AT THE SAME TIME Q DAY. RM AFTER U * lisinopril-hydroCHLOROthiazide (PRINZIDE; ZESTORETIC) 20-25 MG tablet(Started 02/13/2020) * mometasone (NASONEX) 50 MCG/ACT nasal spray(Started 09/01/2019) USE 2 SPRAYS IEN D PRF ALLERGY SYMPTOMS Active Problems Problem Noted Date Diagnosed Date [...] Comments Blood Pressure 193/121 02/25/2020 6:30 PM ELECTRICAL CAD TECHNICIAN Pulse 70 02/25/2020 5:30 PM ELECTRICAL CAD TECHNICIAN Temperature 36.9 C (98.4 F) 02/25/2020 1:48 PM ELECTRICAL CAD TECHNICIAN Respiratory Rate 16 02/25/2020 5:30 PM ELECTRICAL CAD TECHNICIAN Oxygen Saturation 100% 02/25/2020 6:54 PM ELECTRICAL CAD TECHNICIAN Inhaled Oxygen Concentration 21% 02/25/2020 5 :30 PM ELECTRICAL CAD TECHNICIAN Weight 99.8 kg (220 lb) 05/30/2020 2:31 PM CDT Height 177.8 cm (5' 10 ) 05/30/2020 2:31 PM CDT Body Mass Index 31.57 05/30/2020 2:31 PM CDT Procedures * XR CALCANEUS RIGHT 2VW OR MORE(Performed 05/30/2020) Performed for Closed nondisplaced fracture of right calcaneus with routine healing, unspecified portion of calcaneus, subsequent encounter * XR CALCANEUS RIGHT 2VW OR MORE(Performed 05/02/2020) Performed for Closed nondisplaced fracture of right calcaneus with routine healing, unspecified portion of calcaneus, subsequent encounter * XR CALCANEUS RIGHT 2VW OR MORE(Performed 04/03/2020) Performed for Closed nondisplaced fracture of right calcaneus with routine healing, unspecified portion of calcaneus, subsequent encounter * XR CALCANEUS RIGHT 2VW OR MORE(Performed 03/14/2020) Performed for Closed nondisplaced fracture of right calcaneus, unspecified portion of calcaneus, initial encounter * CT FOOT RIGHT WO CONTRAST(Performed 02/25/2020) Performed for Fall, initial encounter * XR CALCANEUS RIGHT 2VW OR MORE(Performed 02/25/2020) Performed for Fall, initial encounter * XR FOOT RIGHT 3VW OR MORE(Performed 02/25/2020) Performed for Fall, initial encounter * XR ANKLE RIGHT 3VW OR MORE(Performed 02/25/2020) Performed for Fall, initial encounter * DERMATOPATHOLOGY(Performed 02/06/2017) * DERMATOPATHOLOGY(Performed 09/30/2012) Results * XR CALCANEUS RIGHT 2VW OR MORE (05/30/2020 2:28 PM CDT) Only the most recent of5 resultswithin the time period is included. Anatomical Region Laterality Modality Ankle / Foot, Lower Extremity Ra diographic Imaging 05/30/2020 2:31 PM CDT Impressions 05/30/2020 2:32 PM CDT FINDINGS/IMPRESSION: There is partial interval healing of calcaneal fracture, with no evidence of increased displacement. The visualized joint spaces are unchanged. This report was electronically signed by JOHNNY GILES on 05/30/2020 2:32 PM . Narrative 05/30/2020 2:32 PM CDT EXAMINATION: XR CALCANEUS RIGHT 2VW OR MORE HISTORY: S92.001D: Closed nondisplaced fracture of right calcaneus with routine healing, unspecified portion of calcaneus, subsequent encounter COMPARISON: 05/02/2020 Procedure Note Johnny Giles MD - 05/30/2020 EXAMINATION: XR CALCANEUS RIGHT 2VW OR MORE HISTORY: S92.001D: Closed nondisplaced fracture of right calcaneus with routine healing, unspecified portion of calcaneus, subsequent encounter COMPARISON: 05/02/2020 FINDINGS/IMPRESSION: There is partial interval healing of calcaneal fracture, with noevidence of increased displacement. The visualized joint spaces are unchanged. This report was electronically signed by JOHNNY GILES on 12:32 PM . Clifford Ross MD DIAGNOSTIC IMAGING O RDERABLES * CT FOOT RIGHT WO CONTRAST (02/25/2020 6:07 PM ELECTRICAL CAD TECHNICIAN) Anatomical Region Laterality Modality Ankle / Foot Computed Tomogra phy 02/25/2020 6:44 PM ELECTRICAL CAD TECHNICIAN Impressions 02/26/2020 2:12 PM ELECTRICAL CAD TECHNICIAN Impression: 1.Comminuted fracture of the calcaneus, extending into all of its articular surfaces. 2.Numerous osseous fragments most which likely represent secondary ossification center/sesamoid bones. Donor fragments from avulsion fractures could also be considered, particularly at the head of the fifth metatarsal and fourth metatarsal. Correlate with point tenderness. Follow-up imaging in 10-14 days can be considered. 3.Diffuse soft tissue swelling. Report drafted by Rc Raymundo (resident) I, Dr. MARTINA RAMOS have personally reviewed and interpreted this examination/study. This report was electronically signed by MARTINA RAMOS on 02/26/2020 2:12 PM . Narrative 02/26/2020 2:12 PM ELECTRICAL CAD TECHNICIAN Procedure Information DATE: 02/25/2020 6:08 PM EXAMINATION: Computed tomography (CT) of the right foot without contrast TECHNIQUE: CT of the right foot was performed without contrast according to standard protocol. Clinical Information HISTORY: W19.XXXA: Fall, initial encounter COMPARISON:None. Findings Bones: There is a comminuted fracture of the calcaneus, extending into all of its articular surfaces. Numerous osseous fragments at the head of the fifth metatarsal (series 4, image 81-83). Well-corticated osseous density at the base of the fourth metatarsal (series 4, image 80). Well-corticated osseous density adjacent to the head of the second metatarsal (series 4, image 76) likely a sesamoid bone. Well-corticated osseous density at the medial aspect of the midfoot (series 4, image 50), likely secondary ossification center. Vessels: Normal. Soft tissues: Diffuse soft tissue swelling. Procedure Note Martina Ramos MD - 02/26/2020 Procedure Information DATE: 02/25/2020 6:08 PM EXAMINATION: Computed tomography (CT) of the right foot without contrast TECHNIQUE: CT of the right foot was performed without contrast according tostandard protocol. Clinical Information HISTORY: W19.XXXA: Fall, initial encounter COMPARISON:None. Findings Bones: There is a comminuted fracture of the calcaneus, extending into all ofits articular surfaces. Numerous osseous fragments at the head of the fifth metatarsal (series 4, image 81-83). Well-corticated osseous density atthe base of the fourth metatarsal (series 4, image 80). Well-corticated osseous density adjacent to the head of the second metatarsal (series 4, image 76) likely a sesamoid bone. Well-corticated osseous density at the medial aspect of the midfoot (series 4, image 50), likely secondary ossification center. Vessels: Normal. Soft tissues: Diffuse soft tissue swelling. Impression: 1.Comminuted fracture of the calcaneus, extending into all of its articular surfaces. 2.Numerous osseous fragments most which likely represent secondary ossification center/sesamoid bones. Donor fragments from avulsion fractures could also be considered, particularly at the head of thefifth metatarsal and fourth metatarsal. Correlate with point tenderness. Follow-up imaging in 10-14 days can be considered. 3.Diffuse soft tissue swelling. Report drafted by Rc Raymundo (resident) Yoli, Dr. MARTINA RAMOS have personally reviewed and interpreted this examination/study. This report was electronically signed by MARTINA RAMOS on 02/26/2020 2:12 PM . Arvin Greshamcaesar CLOTH LAMINATING SUPERVISOR-BUTTERMILK DRIER OPERATOR CT ORDERABLES * XR FOOT RIGHT 3VW OR MORE (02/25/2020 2:26 PM ELECTRICAL CAD TECHNICIAN) Anatomical Region Laterality Modality Ankle / Foot Radiographic Noni ging 02/25/2020 2:47 PM ELECTRICAL CAD TECHNICIAN Impressions 02/26/2020 11:30 AM ELECTRICAL CAD TECHNICIAN IMPRESSION: 1.Nondisplaced with intra-articular fractures of the calcaneus. 2.Questioned nondisplaced fracture of the cuboid. 3.Normal right ankle. Report dictated by Duran Monge MD (vice president commercial bank). Dr. ANIBAL Kent have personally reviewed and interpreted this examination/study. This report was electronically signed by ANIBAL MANDEL on 02/26/2020 11:30 AM . Narrative 02/26/2020 11:30 AM ELECTRICAL CAD TECHNICIAN EXAMINATION: XR CALCANEUS RIGHT 2VW OR MORE, XR FOOT RIGHT 3VW OR MORE, XR ANKLE RIGHT 3VW OR MORE HISTORY: W19.XXXA: Fall, initial encounter COMPARISON: No prior study is available for comparison. FINDINGS: Images are obtained through a splint which diminishes bone and soft tissue detail. Right ankle: No acute fracture or dislocation. The syndesmosis is not widened. The ankle mortise is intact. No significant soft tissue swelling. Right foot: The mid and forefoot are intact and and demonstrate normal joint spaces. There is soft tissue swelling about the hindfoot. Right calcaneus: There are nondisplaced fractures of the calcaneus which extend to the subtalar joint and likely the calcaneocuboid joint. There is questioned nondisplaced fracture of the cuboid. Procedure Note Anibal Mandel DO - 02/26/2020 EXAMINATION: XR CALCANEUS RIGHT 2VW OR MORE, XR FOOT RIGHT 3VW OR MORE,XR ANKLE RIGHT 3VW OR MORE HISTORY: W19.XXXA: Fall, initial encounter COMPARISON: No prior study is available for comparison. FINDINGS: Images are obtained through a splint which diminishes bone and softtissue detail. Right ankle: No acute fracture or dislocation. The syndesmosis is not widened. The ankle mortise is intact. No significant soft tissue swelling. Right foot: The mid and forefoot are intact and and demonstrate normal joint spaces. There is soft tissue swelling about the hindfoot. Right calcaneus: There are nondisplaced fractures of the calcaneus which extend to the subtalar joint and likely the calcaneocuboid joint. There is questioned nondisplaced fracture of the cuboid. IMPRESSION: 1.Nondisplaced with intra-articular fractures of the calcaneus. 2.Questioned nondisplaced fracture of the cuboid. 3.Normal right ankle. Report dictated by Duran Monge MD (vice president commercial bank). I, Dr. ANIBAL MANDEL have personally reviewed and interpreted this examination/study. This report was electronically signed by ANIBAL MANDEL on 02/26/2020 11:30 AM . Jean Claude Bridges MD DIAGNOSTIC IMAGING O RDERABLES * XR ANKLE RIGHT 3VW OR MORE (02/25/2020 2:26 PM ELECTRICAL CAD TECHNICIAN) Anatomical Region Laterality Modality Lower Extremity Radiographic Noni ging 02/25/2020 2:47 PM ELECTRICAL CAD TECHNICIAN Impressions 02/26/2020 11:30 AM ELECTRICAL CAD TECHNICIAN IMPRESSION: 1.Nondisplaced with intra-articular fractures of the calcaneus. 2.Questioned nondisplaced fracture of the cuboid. 3.Normal right ankle. Report dictated by Duran Monge MD (vice president commercial bank). I, Dr. ANIBAL MANDEL have personally reviewed and interpreted this examination/study. This report was electronically signed by ANIBAL MANDEL on 02/26/2020 11:30 AM . Narrative 02/26/2020 11:30 AM ELECTRICAL CAD TECHNICIAN EXAMINATION: XR CALCANEUS RIGHT 2VW OR MORE, XR FOOT RIGHT 3VW OR MORE, XR ANKLE RIGHT 3VW OR MORE HISTORY: W19.XXXA: Fall, initial encounter COMPARISON: No prior study is available for comparison. FINDINGS: Images are obtained through a splint which diminishes bone and soft tissue detail. Right ankle: No acute fracture or dislocation. The syndesmosis is not widened. The ankle mortise is intact. No significant soft tissue swelling. Right foot: The mid and forefoot are intact and and demonstrate normal joint spaces. There is soft tissue swelling about the hindfoot. Right calcaneus: There are nondisplaced fractures of the calcaneus which extend to the subtalar joint and likely the calcaneocuboid joint. There is questioned nondisplaced fracture of the cuboid. Procedure Note Anibal Mandel DO - 02/26/2020 EXAMINATION: XR CALCANEUS RIGHT 2VW OR MORE, XR FOOT RIGHT 3VW OR MORE,XR ANKLE RIGHT 3VW OR MORE HISTORY: W19.XXXA: Fall, initial encounter COMPARISON: No prior study is available for comparison. FINDINGS: Images are obtained through a splint which diminishes bone and softtissue detail. Right ankle: No acute fracture or dislocation. The syndesmosis is not widened. The ankle mortise is intact. No significant soft tissue swelling. Right foot: The mid and forefoot are intact and and demonstrate normal joint spaces. There is soft tissue swelling about the hindfoot. Right calcaneus: There are nondisplaced fractures of the calcaneus which extend to the subtalar joint and likely the calcaneocuboid joint. There is questioned nondisplaced fracture of the cuboid. IMPRESSION: 1.Nondisplaced with intra-articular fractures of the calcaneus. 2.Questioned nondisplaced fracture of the cuboid. 3.Normal right ankle. Report dictated by Duran Monge MD (vice president commercial bank). I, Dr. ANIBAL MANDEL have personally reviewed and interpreted this examination/study. This report was electronically signed by ANIBAL MANDEL on 02/26/2020 11:30 AM . Jean Claude Bridges MD DIAGNOSTIC IMAGING O RDERABLES * PATHOLOGY TISSUE FOR DERMATOLOGY (02/06/2017 12:00 AM ELECTRICAL CAD TECHNICIAN) Only the most recent of2 resultswithin the time period is included. 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 Check margins. GROSS DESCRIPTION: Received is one formalin filled container labeled with the patients name and designated right posterior medial calf. The specimen consists of a shave biopsy measuring [id number]. The margin is inked green. Jar 0. MICROSCOPIC DESCRIPTION: There is a sparse to moderately dense lichenoid lymphohistiocytic infiltrate, a thinned epidermis, and cornoid lamella formation. The epidermis shows very focal full thickness disorderly maturation of keratinocytes, mitoses at different levels, and dyskeratotic cells. Neither lesion is present at the sampled margin of the specimen. Electronically signed out by Cookie Barnett M.D., PhD. 02/10/2017 12:00:51PM [facility] Comment: Performed at: Dermatopathology Laboratory [facility] - Department of Dermatology [address] [place] [address], [address] [place] [address] Phone number: [phone] FAX: [phone] 02/06/2017 02/09/2017 Tk Garcia MD LAB - PATHOLOGY/CYTO LOGY ORDERABLES [facility] DERMATOLOGY LAB [facility] [place] [address], [facility] [phone]
--- OUTSIDE RECORDS SUMMARY | 2024-04-05 10:11 | XMS_ITS | Clinical Summary ---
Author Organization [facility] Care Team Providers Care Emergency Service Restorer Name Role Phone Unavailable Primary Care Provider Unavailabl e Social History Tobacco Use Types Packs/Day Years Used Date Smoking Tobacco: Never Assessed Sex and Gender Information Value Date Recorded Sex Assigned at Not on file Legal Sex Male 7:55 AM CDT Gender Identity Not on file Sexual Orientation Not on file Plan of Treatment Health Maintenance Due Date Last Done Comments Hepatitis C Virus (HCV) Screening 1960 TdaP Immunization 1960 Colonoscopy 08/03/2007 Colorectal Cancer Screening 08/03/2007 Cologuard 2012 Immunochemical Fecal Occult Blood 2012 Pneumococcal Immunization (5 0+ years) (1 of 1 - PCV) 2012 Zoster Immunization (1 of 2) 2012 PSA Discussion 2017 Influenza Immunization (#1) 2023 12/31/2016 SARS-COV-2 Immunization ( season) 2023 05/28/2020, 05/07/2020 Respiratory Syncytial Virus (RSV) Immunization (Adult) (1 - 1-dose 75+ series) 2037 Hepatitis B Immunization Aged Out No longer eligible based on patient's age to complete this topic Meningococcal Immunization (ACWY) Aged Out No longer eligible b ased on patient's age to complete this topic Pneumococcal Immunization Combined Aged Out No longer eligible b ased on patient's age to complete this topic Rotavirus Immunization Aged Out No lo nger eligible based on patient's age to complete this topic
--- NOTE | 2024-04-21 18:55 | WPDHOMESLEEP ---
Sleep Study - Home Unattended Date of Study: 04/05/24 Ordering Provider: SHIVANI Olivo Interpreting Provider: Francia Augustin MD Home Sleep Study Type: Watch PAT Height: 1.78 m Weight: 102.058 kg Body Mass Index: 32.3 Neck Circumference (inches): 17.5 [place]: 7 Reason for Sleep Study Excessive daytime sleepiness Sleep History Milo Ziegler is a 63-year-old man with asthma which is well controlled. His sleep questionnaire indicates that he awakens feeling tired. His sleep is not refreshing. He does not feel sleepy too much during the day and he does not have drowsy driving. He does not have an urge to move his leg in the evening. He does not kick excessively during sleep. He does not clench his teeth or grind his teeth. He does not usually snore or stop breathing during sleep. He does not choke or gasp at night. He does not have trouble breathing when he sleeps on his back. He does not have a morning headache. He does awaken with a sore throat and a dry mouth. He does not have nocturnal heartburn. He does not generally will awaken at night to urinate. He may awaken for no clear reason. He has never had a prior sleep study. He does not have difficulty falling asleep. He does not take any sleeping pills. He does not feel anxious about his sleep. Normal bedtime is 10:00 p.m. on work days. He falls asleep within 15 minutes. He spends 7 hours in bed, 6 hours and 45 minutes of this time asleep. On weekends, bedtime is later, 11:00 p.m.. He falls asleep within 15 minutes. He spends 6-1/2 hours in bed, 6 hours of sleep. On days off his sleep is somewhat restorative. He does not take planned naps. Habits: tobacco: no Caffeine: 1-2 cups daily Alcohol: 3-4 glasses in a week PMFSH Past Medical History Medical History Other obstructive and reflux uropathy (09/22/18) Polyosteoarthritis, unspecified (09/22/18) Arthritis History of kidney stones History of inguinal hernia Hypertension Allergic rhinitis, unspecified Asthma Avascular necrosis of bone of left hip Borderline hyperlipidemia Elevated glucose Enlarged prostate with lower urinary tract symptoms (LUTS) Essential (primary) hypertension Fatty liver disease, nonalcoholic (09/22/18) Primary osteoarthritis of left hip Surgical History Surgical History Presence of left artificial hip joint (03/09/18) History of total left hip arthroplasty (~03/09/18) History of nasal septoplasty History of inguinal hernia repair Family History Family History Father Hypertension Family history of diabetes mellitus in first degree relative Family history of lung cancer, Onset Age: 74 Diabetes mellitus Family history of malignant neoplasm Family history of allergic disorder Mother Hypertension Family history of allergic disorder Sibling Patient's brother is in good health Other Asthma Social History Social History Smoking status: Never smoker Second hand tobacco smoke exposure: No Alcohol intake: current Alcohol use details: socially Substance use: never Substance use type: does not use Lack of Transportation: No Lack of Food: Never True Current Housing: I Have Housing Concerned About Future Housing: No Difficulty Paying Gas/Electric Bills: No Difficulty Paying for Meds: No Currently Unemployed: No Education: Trade/Vocational Certificate Difficulty w/ Childcare or Family Care: No Gender identity (if verbalized by the patient): Male Medications Home Medications ?Medication ?Instructions ?Recorded ?Confirmed ?Type finasteride 5 mg tablet 5 mg PO DAILY 08/09/20 11/20/23 History tiotropium bromide 1.25 2 puff inhalation DAILY #4 grams 11/14/22 11/20/23 Rx mcg/actuation mist for inhalation (Spiriva Respimat) metformin 500 mg tablet 500 mg PO DAILY #90 tabs 02/10/23 11/20/23 Rx lisinopril 20 See Rx Instructions .Route 04/07/23 11/20/23 Rx mg-hydrochlorothiazide 25 mg tablet .COMPLEX #90 tabs nystatin 100,000 unit/gram topical 1 applic topical TID PRN rash #60 06/03/23 11/20/23 Rx powder grams Ventolin HFA 90 mcg/actuation See Rx Instructions .Route 12/01/23 Rx aerosol inhaler (albuterol sulfate) .COMPLEX #18 grams montelukast 10 mg tablet 10 mg PO DAILY 90 days #90 tabs 01/25/24 Rx Breo Ellipta 200 mcg-25 mcg/dose 1 inh inhalation Q24H 90 days #180 04/08/24 Rx powder for inhalation (fluticasone ea furoate-vilanterol) hydrocortisone 2.5 % topical 1 applic topical BID PRN rash #20 04/18/24 Rx ointment grams Sleep Procedure The sleep study was completed using [employer] a technically adequate device with seven channels: peripheral arterial tone, actigraphy, body position, snore, respiratory movement, pulse oximetry, sleep staging, and heart rate. Prior to using the device, the patient received verbal and written instructions for its application and was provided with the help desk phone number for additional telephonic instruction with 24-hour availability of qualified personnel to answer questions. Sleep Architecture The total recording time is 6 hrs, 14 min. The total sleep time is 5 hrs, 59 min. Sleep latency is 10 minutes. REM latency is 42 minutes. The patient had 1 episodes of waking. Sleep architecture shows 18.1% deep sleep, 41.7% light sleep, and 40.2% stage REM. The patient spent 96.5% of total sleep time in the supine position. Sleep efficiency was 96%. Respiratory Analysis The overall AHI (pAHI 3%:) is 22.0. The central AHI is 8.1. This is increased, normal central AHi is < 5 events per hour. The AHI was 12.3 in NREM and 36.5 in REM sleep. The AHI was 22.2 in Supine and 14.8 in Non-supine sleep. Percent of Ji Billy respirations is 0%. Oximetry Data The oxygen desaturation index (BELA 4%:) is 13.6. The mean saturation is 92%, and the lowest saturation is 78%. Time spent with saturation < 88% is 10.9 minutes. Snoring Profile Snoring average intensity is 43 dB. The patient snored above 45 decibels for 75.8 minutes, 21.1% of sleep time. Cardiac Profile The average pulse is 56 beats per minute, the lowest pulse is 46 beats per minute, and the highest pulse is 89 beats per minute. The cardiac rhythm analysis in sleep did not detect suspected atrial fibrillation. Assessment and Plan Assessment and Plan (1) Obstructive sleep apnea: Code(s): G47.33 - Obstructive sleep apnea (adult) (pediatric) Status: Acute Assessment and Plan: This home sleep test using WatchPat on 04/05/2024 shows moderate obstructive sleep apnea, the apnea-hypopnea index using 3% criteria is 22, desaturation occurred to 78% and the patient spent 10.9 minutes, 3% of the study below 88% saturation with moderate snoring. He had a central AHI of 8.1, elevated, normal is < 5 events per hour. He snored above 45 decibels for 75.8 minutes, 21.1% of the sleep time. Options for this patient include PAP therapy. Due to the elevated central apnea index, he needs to have a full night dedicated CPAP titration in the sleep lab with a sleep available, if needed, to initiate and maintain sleep. Effective sleep aids for this purpose include Ambien 5 mg to 10 mg or Lunesta 2 mg to 3 mg. He should not take a sleep aid until the start of the test in the Sleep leg. The patient reported taking 2 drinks the night of the test, last drink was 10 pm. Alcohol can lead to increased central apneas. It is best to avoid alcohol close to bedtime because as it wears off, rebound awakening can occur. He should not consume alcohol the night of the titration. He is not a candidate for auto PAP as this can worsen central apneas. He also seems to be getting less sleep than is necessary for normal people. Normal adult need between 7 and 8 hours of sleep at night. He is routinely getting around 6 hours. This may contribute to feeling tired in the day. If he still has central apneas on his CPAP titration I would recommend an echocardiogram to evaluate LV function. He has no history of stroke or congestive heart failure. Sometimes, the home sleep test overestimate central apneas. With increased centrals we generally want to know what an echo shows but I would hold off until the CPAP titration. BMi is 32. Weight management is advised. Clinical data suggests that weight loss of 10% can reduce the severity of respiratory events and snoring and improve AHI by as much as 25%. Data The data obtained during this sleep study is adequate for interpretation. Certification This sleep study has been reviewed by a board certified sleep medicine physician.
[2024-04-21 19:18] VITALS: BMI 32.3
== END 2024-04-06 11:55 | disposition home or self-care (01) ==
LOC: ANHCSM 09:23
PROVIDERS: PCP Family Medicine; Visit Provider Physician Assistant
DX: G47.10 Hypersomnia, unspecified (principal); G47.33 Obstructive sleep apnea (adult) (pediatric)
CPT/HCPCS: 95800

== ENCOUNTER 2024-09-30 08:13 | Emergency (ER) | payer OTHER, SELFPAY ==
--- OUTSIDE RECORDS SUMMARY | 2024-09-30 08:17 | XMS_ITS | Clinical Summary ---
Author Organization [facility] Care Team Providers Care Energy And Sustainability Manager Name Role Phone Unavailable Primary Care Provider [...] Virus (HCV) Screening 1960 TdaP Immunization 1960 Cologuard 08/03/2007 Colonoscopy 08/03/2007 Colorectal Cancer Screening 08/03/2007 Immunochemical Fecal Occult Blood 08/03/2007 Pneumococcal Immunization (5 0+ years) (1 of 1 - PCV) 2012 Zoster Immunization (1 of 2) 2012 SARS-COV-2 Immunization (3 - season) 2023 05/28/2020, 05/07/2020 Influenza Immunization (#1) 2024 11/0 09/2016, 12/01/2013 Respiratory Syncytial Virus (RSV) Immunization (Adult) (1 - 1-dose 75+ series) 2037 Hepatitis B Immunization Aged Out No longer eligible based on patient's age to complete this topic Human Papillomavirus (HPV) Immunization Aged Out No longer eligible b ased on patient's age to complete this topic Meningococcal Immunization (ACWY) Aged Out No longer eligible b ased on patient's age to complete this topic Rotavirus Immunization Aged Out No lo nger eligible based on patient's age to complete this topic
--- OUTSIDE RECORDS SUMMARY | 2024-09-30 08:17 | XMS_ITS | Clinical Summary ---
Author Organization [facility] Address [address] [place] [address] Care Team Providers Care Home Hospice Rn Name Role Phone Unavailable Primary Care Provider Unavailabl e Source Comments [facility],non-owned Affiliates and Associated Physician Practices is amultiple site organization consisting of ambulatory clinics and hospital sitesin [place], [place], [place] and [place]. This disclosure is being madepursuant to the Care Everywhere program and may not contain all information available regarding this patient. Last updated 17.[facility] Allergies No known active allergies Medications * Be aware that medications may not be up to date on this document. Alwaysverify current medications with the patient. lisinopril (PRINIVIL; ZESTRIL) 10 MG tablet Take [...] Q DAY. RM AFTER U 12/28/2019 Active lisinopril-hydr oCHLOROthiazide (PRINZIDE; ZESTORETIC) 20-25 MG tablet 02/13/2020 Act massimo mometasone (NASONEX) 50 MCG/ACT nasal spray USE [...] at Not on file Legal Sex Male 6:45 PM [employer]ATION WORK[employer] Gender Identity Not on file Sexual Orientation Not on file Last Filed Vital Signs Vital Sign Reading Time Taken Comments Blood Pressure 193/121 02/25/2020 6:30 PM STATION WORK[employer] Pulse 70 02/25/2020 5:30 PM STATION WORKER Temperature 36.9 C (98.4 F) 02/25/2020 1:48 PM STATION WORKER Respiratory Rate 16 02/25/2020 5:30 PM STATION WORKER Oxygen Saturation 100% 02/25/2020 6:54 PM STATION WORKER Inhaled Oxygen Concentration 21% 02/25/2020 5 :30 PM STATION WORKER Weight 99.8 kg (220 lb) 05/30/2020 2:31 PM CDT Height 177.8 cm (5' 10) 05/30/2020 2:31 PM CDT Body Mass Index [...] 2012 SCREENING FOR DIABETES 02/29/2020 COVID-19 VACCINE (1 - 2023-2 5 season) 2023 DEPRESSION SCREENING 02/24/2024 INFLUENZA VACCINE (#1) 2024 Respiratory Syncytial Virus (RSV) Vaccine Pt: or [...] to complete this topic MENINGOCOCCAL (Group B) VACC INE SHARED DECISION-MAKING Aged Out No longer eligibl e based on patient's age to complete this topic MENINGOCOCCAL GROUPS A/C/Y/W VACCINE Aged Out No longer eligible b ased on patient's age to complete this topic Goals Goal Patient Goal Type Associated Problems Recent Progress Patient-Stated? Author PAIN General Improving(02/24 2:38 PM STATION WORKER) Letha Larios, RN Note: Expected end date: ongoing Patient's pain/discomfort is manageable. Interventions: Insurance [facility]
[2024-09-30 08:24] VITALS: BP 128/81; PULSE 60; RESP 18; TEMP 36.2; O2SAT 96
--- NOTE | 2024-09-30 08:30 | ED_ITS ---
HPI - Skin/Abscess/Foreign Bdy General Chief complaint: Skin/Abscess/Foreign Body Stated complaint: LT Leg Problem Time Seen by Provider: 09/30/24 08:16 Source: patient Mode of arrival: ambulatory Limitations: no limitations History of Present Illness HPI narrative: Patient is a 64-year-old male who presents with left leg wound. Patient states he noticed it a week ago but the last 2-3 days it has worsened in redness. Denies any drainage from area. Does report mildly tender with palpation. Denies any fever, chills, nausea, vomiting, diarrhea. Related Data Home Medications ?Medication ?Instructions ?Recorded ?Confirmed ?Last Taken ?Type finasteride 5 mg tablet 5 mg PO DAILY 08/09/20 09/30/24 Unknown History Allergies Allergy/AdvReac Type Severity Reaction Status Date / Time No Known Allergies Allergy Verified 09/30/24 08:22 Review of Systems 2 Review of Systems: All systems reviewed & are unremarkable except as noted in HPI and below Constitutional: Constitutional: Denies body ache(s), Denies chills, Denies fatigue, Denies fever(s), Denies headache(s), Denies malaise and Denies weakness Eyes: Eyes: Denies blurry vision, Denies irritation and Denies loss of vision ENT: Denies otalgia, Denies headache(s), Denies nasal discharge, Denies sinus pain and Denies sore throat Cardiovascular: Cardiovascular: Denies chest pain, Denies irregular heart rhythm and Denies dyspnea Respiratory: Respiratory: Denies dyspnea Gastrointestinal: Gastrointestinal: Denies abdominal pain, Denies melena, Denies hematochezia, Denies diarrhea, Denies nausea and Denies vomiting Musculoskeletal: Musculoskeletal: Denies back pain, Denies myalgias and Denies arthralgias Integumentary/Breasts: Skin/Breast: Denies pruritus, Reports erythema, Denies rash, Reports skin swelling and Reports wounds Neurologic: Denies headache(s), Denies loss of vision and Denies weakness Psychiatric: Psychiatric: Reports no additional psychiatric complaints Endocrine: Endocrine: Denies fatigue PMFSH Past Medical History Medical History Other obstructive and reflux uropathy (09/22/18) Polyosteoarthritis, unspecified (09/22/18) Arthritis History of kidney stones History of inguinal hernia Hypertension Allergic rhinitis, unspecified Asthma Avascular necrosis of bone of left hip Borderline hyperlipidemia Elevated glucose Enlarged prostate with lower urinary tract symptoms (LUTS) Essential (primary) hypertension Fatty liver disease, nonalcoholic (09/22/18) Primary osteoarthritis of left hip Surgical History Surgical History Presence of left artificial hip joint (03/09/18) History of total left hip arthroplasty (~03/09/18) History of nasal septoplasty History of inguinal hernia repair Family History Family History Father Hypertension Family history of diabetes mellitus in first degree relative Family history of lung cancer, Onset Age: 74 Diabetes mellitus Family history of malignant neoplasm Family history of allergic disorder Mother Hypertension Family history of allergic disorder Sibling Patient's brother is in good health Other Asthma Social History Social History Smoking status: Never smoker Second hand tobacco smoke exposure: No Alcohol intake: current Alcohol use details: socially Substance use: never Substance use type: does not use Lack of Transportation: No Lack of Food: Never True Current Housing: I Have Housing Concerned About Future Housing: No Difficulty Paying Gas/Electric Bills: No Difficulty Paying for Meds: No Currently Unemployed: No Education: Trade/Vocational Certificate Difficulty w/ Childcare or Family Care: No Gender identity (if verbalized by the patient): Male Comments At time of signature, agree with nursing past medical, surgical, social and family history. There is no relevant family history pertinent to the presenting complaint. Exam 2 Const: General: cooperative, healthy appearing, comfortable, no acute distress and well nourished Nutritional Appearance: well nourished O rientation/consciousness: patient oriented x3 Limitations: no limitations HENMT: Head: normal to inspection, normocephalic and atraumatic Ears: h earing grossly normal bilaterally and external ears normal Face/Nose/Sinus: N ormal external nose present, normal facial exam and face symmetric Face and sinus: normal facial exam and face symmetric Mouth: Yes lip normal Eyes: General: appearance normal, both eyes and all related structures A lignment and Position: alignment normal and position normal Periorbital: p eriorbital findings normal Eyelids: eyelids normal Pupils: Equal, round and reactive pupils present EOM: EOMs intact bilaterally Neck: Neck: normal visual inspection, full ROM and supple Chest: Chest palpation & inspection: normal inspection of the chest Resp: Effort & Inspection: normal respiratory effort and able to speak in complete sentences Auscultation: clear to auscultation bilaterally Cardio: Rate: regular rate Rhythm: regular rhythm Heart sounds: S1 normal heart sound present and S2 normal heart sound present GI: Inspection: normal to inspection Skin: General skin exam: normal color Full body images: 1. 3x3.5 cm area of erythema and induration. bite aaron present in the center. Warm and tender to touch Neuro: General: patient oriented x3 and moves all extremities Cranial nerves: Yes Equal, round and reactive pupils present Speech: normal speech Gait exam (Neuro): Normal gait present Extrem: General: normal to inspection, full ROM and no edema Psych: Appearance: grossly normal and well kempt Mental Status: mental status grossly normal Speech and movement: Normal speech and movement present Affect: normal affect Attitude: cooperative Thought process: Normal thought process present Course Course Emergency Course: Patient is aware of diagnosis, understands and agrees to treatment plan. Anticipatory guidance given. Patient agrees to follow-up as directed and is aware of reasons to seek care at the emergency department. Portions of this record may have been created with voice recognition software Level of Care: Express Care Visit Vital Signs Vital signs: Vital Signs Temperature 36.2 C L 09/30/24 08:24 Pulse Rate 60 09/30/24 08:24 Respiratory Rate 18 09/30/24 08:24 Blood Pressure 128/81 09/30/24 08:24 Pulse Oximetry 96 09/30/24 08:24 Oxygen Delivery Room Air 09/30/24 08:24 Temperature 36.2 C L 09/30/24 08:24 Pulse Rate 60 09/30/24 08:24 Respiratory Rate 18 09/30/24 08:24 Blood Pressure 128/81 09/30/24 08:24 Pulse Oximetry 96 09/30/24 08:24 Oxygen Delivery Room Air 09/30/24 08:24 Reviewed MDM - Skin/Abscess/Foreign Bdy MDM Narrative Medical decision making narrative: Will cover with oral and topical antibiotics for cellulitis Pt well hydrated appearing, in no respiratory distress, hemodynamically stable. Recommend supportive care. The patient is stable at time of discharge the clinical impression was discussed and the patient was given the opportunity to ask questions, which were addressed as completely as possible given the information available at present. Anticipatory guidance and return to care precautions were discussed and the importance of primary care follow-up was stressed and encouraged. The patient voiced understanding of the plan, indications to return, and the need for follow-up. Exam findings show no acute concerns or changes Patient is appropriate for outpatient treatment and follow-up. Differential Diagnosis Differential diagnosis: Likely abscess of skin or subcutaneous tissue, cellulitis, insect bites and contact dermatitis Medical Records Attestation: I reviewed the patient's medical records. Discharge Plan Discharge Clinical Impression: Cellulitis Qualifiers: Site of cellulitis: extremity Site of cellulitis of extremity: lower extremity Laterality: left Qualified Code(s): L03.116 - Cellulitis of left lower limb Patient Disposition: Home Condition: Stable Instructions: Cellulitis (ED) Additional Instructions: Please follow up with your Primary Care Doctor within 48-72 hours - call for an appointment. Rest and elevate affected area; apply moist heat 3-4 times daily for 10-15 minutes. Clean with soap and water only; Avoid using alcohol and peroxide. Elevate the affected area if possible Please take Antibiotics as directed. For pain, you may take: Tylenol 650-1000mg by mouth every 4-6 hours. Do not exceed 4000mg in 24 hours. Advil (Ibuprofen) 600 mg by mouth every 6 hours. Do not exceed 2400mg in 24 hours. 8 AM: Tylenol 11 AM: Ibuprofen 2 PM: Tylenol 5 PM: Ibuprofen 8 PM: Tylenol 11 PM: Ibuprofen 2 AM: Tylenol 5 AM: Ibuprofen If you experience any worsening redness, swelling, streaking (red lines), fever or chills please go to the ER Patient Language: Estonian Prescriptions: New cephalexin 500 mg capsule 500 mg PO QID 7 Days Qty: 28 0RF mupirocin 2 % ointment 1 applic topical BID Qty: 15 0RF No Action finasteride 5 mg tablet 5 mg PO DAILY metformin 500 mg tablet 500 mg PO DAILY Qty: 90 0RF nystatin 100,000 unit/gram powder 1 applic topical TID PRN (Reason: rash) Qty: 60 2RF albuterol sulfate [Ventolin HFA] 90 mcg/actuation HFA aerosol inhaler See Rx Instructions .ROUTE .COMPLEX Qty: 18 3RF Dose Instruction: INHALE 1 TO 2 PUFFS BY MOUTH EVERY 4 TO 6 HOURS NEEDED FOR SHORTNESS OF BREATH OR WHEEZING Rx Instructions: INHALE 1 TO 2 PUFFS BY MOUTH EVERY 4 TO 6 HOURS NEEDED FOR SHORTNESS OF BREATH OR WHEEZING montelukast 10 mg tablet 10 mg PO DAILY 90 Days Qty: 90 3RF fluticasone furoate-vilanterol [Breo Ellipta] 200-25 mcg/dose blister with device 1 inh inhalation Q24H 90 Days Qty: 180 3RF Rx Instructions: Rinse and spit. hydrocortisone 2.5 % ointment 1 applic topical BID PRN (Reason: rash) Qty: 20 0RF lisinopril-hydrochlorothiazide 20-25 mg tablet See Rx Instructions .ROUTE .COMPLEX Qty: 90 3RF Dose Instruction: TAKE 1 TABLET DAILY Rx Instructions: TAKE 1 TABLET DAILY Spiriva Respimat 1.25 mcg/actuation mist See Rx Instructions .ROUTE .COMPLEX Qty: 4 5RF Dose Instruction: INHALE 1 TO 2 PUFFS BY MOUTH DAILY Rx Instructions: INHALE 1 TO 2 PUFFS BY MOUTH DAILY Follow-up/Referrals: Ronald Zaidi MD [Physician] - 3 Days Time of Disposition: 08:32
== END 2024-09-30 08:33 | disposition home or self-care (01) ==
PROVIDERS: Emergency Provider Nurse Practitioner Family
DX: L03.116 Cellulitis of left lower limb (principal); I10 Essential (primary) hypertension; J45.909 Unspecified asthma, uncomplicated; M87.9 Osteonecrosis, unspecified; K76.0 Fatty (change of) liver, not elsewhere classified; M16.12 Unilateral primary osteoarthritis, left hip; Z96.642 Presence of left artificial hip joint
CPT/HCPCS: 99213; G0463

== ENCOUNTER 2025-01-31 08:40 | Outpatient (CLI) | payer OTHER, SELFPAY ==
[2025-01-31 09:21] LABS: Alanine Aminotransferase 56 U/L (6-50); Albumin Level 4.7 g/dL (3.5-5.1); Alkaline Phosphatase 41 U/L (38-126); Anion Gap 5 mmol/L (4-12); Aspartate Amino Transferase 55 U/L (17-59); Bilirubin,Total 1.1 mg/dL (0.2-1.3); Blood Urea Nitrogen 14 mg/dL (9-20); Calcium 9.2 mg/dL (8.4-10.2); Carbon Dioxide 29 mmol/L (22-30); Chloride 101 mmol/L (98-107); Estimated Glomerular Filt Rate > 60; Glucose 110 mg/dL (65-110); Potassium 4.0 mmol/L (3.4-5.0); Sodium 135 mmol/L (137-145); Total Protein 8.6 g/dL (6.3-8.2)
[2025-01-31 09:58] LABS: Prostate Specific Antigen 3.0 ng/mL (< OR = 4.0)
[2025-01-31 11:19] LABS: Hematocrit 48.8 % (42.0-52.0); Hemoglobin 16.7 g/dL (14.0-18.0); Mean Corpuscular HGB Conc 34.2 g/dl (32-36); Mean Corpuscular Hemoglobin 32.0 pg (26-34); Mean Corpuscular Volume 93.5 fl (80-100); Platelet Count Result 212 k/mm3 (150-375); Red Blood Count 5.22 M/mm3 (4.6-6.20); White Blood Count 6.4 K/mm3 (4.5-10.0)
[2025-01-31 12:24] LABS: Hemoglobin A1C 5.8 % (<5.7)
== END 2025-01-31 08:41 | disposition home or self-care (01) ==
PROVIDERS: PCP Family Medicine; Visit Provider Family Medicine
DX: R73.03 Prediabetes (principal); I10 Essential (primary) hypertension; R74.8 Abnormal levels of other serum enzymes; J45.909 Unspecified asthma, uncomplicated
CPT/HCPCS: 36415; 80053; 83036; 84153; 85027; G0103